=== PATIENT | male | born 1975 | race Caucasian/White ===

== ENCOUNTER 2023-11-05 19:26 | Emergency (ER) | payer BC ==
[~2023-11-05] VITALS: Ht 172.7 cm; Wt 84.8 kg
== END 2023-11-05 21:00 | disposition home or self-care (01) ==
LOC: ER 19:26
DX: I80.01 Phlebitis and thrombophlebitis of superficial vessels of right lower extremity (principal); I83.811 Varicose veins of right lower extremity with pain
CPT/HCPCS: 93971; 99283-25